=== PATIENT | female | born 1955 | race Caucasian/White ===

== ENCOUNTER 2020-12-21 15:15 | Emergency (ER) | payer OTHER ==
[~2020-12-21] VITALS: Ht 165.1 cm; Wt 81.7 kg
[2020-12-21 18:18] LABS: ABSOLUTE NEUTROPHILS 4.9 thou/uL (1.4-8.2); BASOPHILS 0.8 % (0.0-2.0); HEMATOCRIT 37.8 % (37.0-47.0); HEMOGLOBIN 12.9 gm/dL (12.0-15.0); LYMPHOCYTES 17.8 % (24.0-44.0); MCH 31.1 pg (26.0-34.0); MCV 91.3 fL (80.0-100.0); PLATELET COUNT 264 thou/uL (150-400); POLYS 68.4 % (36.0-66.0); RBC 4.13 mil/uL (4.20-5.00); RDW 13.2 % (10.5-14.5); URINE BILIRUBIN NEGATIVE (Negative); URINE BLOOD TRACE (Negative); URINE CLARITY SL CLOUDY; URINE COLOR YELLOW; URINE GLUCOSE-RANDOM* NEGATIVE (Negative); URINE KETONES NEGATIVE (Negative); URINE PROTEIN (DIPSTICK) NEGATIVE (Negative); URINE UROBILINOGEN 0.2 E.U./dl (0.2-1.0); WBC 7.1 thou/uL (4.0-11.0)
[2020-12-21 18:25] LABS: URINE LEUKOCYTES-REFLEX 3+ (Negative); URINE NITRITE-REFLEX POSITIVE (Negative)
[2020-12-21 18:39] LABS: CASTS None Seen /LPF (None Seen); SQUAMOUS 0-3 Few /LPF (0-3)
[2020-12-21 18:40] LABS: BACTERIA-REFLEX >30 Many /HPF (None Seen); CRYSTALS None Seen /LPF (None Seen); URINE RBC 1-2 Rare /HPF (NONE SEEN)
[2020-12-21 18:45] LABS: ALBUMIN 3.7 g/dL (3.4-5.0); CALCIUM 9.3 mg/dL (8.5-10.1); CREATININE 0.9 mg/dL (0.6-1.0); TOTAL BILIRUBIN 0.5 mg/dL (0.2-1.0)
[2020-12-21 19:03] LABS: POTASSIUM 2.9 mmol/L (3.5-5.1)
[2020-12-21] MEDS ORDERED: CEPHALEXIN500 MG PO (19:31)
[2020-12-21 19:57] VITALS: BP 129/62
--- NOTE | 2020-12-22 07:20 | EKG ---
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 : [id number] Requested By: Antonietta Quevedo Order Number: [id number] MD: Juan Salcedo Measurements Intervals [place] Rate: 69 P: 36 UT: 158 QRS: 13 QRSD: 101 T: 1 QT: 394 QTc: 422 Interpretive Statements Sinus rhythm Borderline T abnormalities, anterior leads Baseline wander in lead(s) II,III,aVF No previous ECG available for comparison Electronically Signed On 12-22-2020 7:20:18 CDT by Jaun Salcedo [email or web address] <ELECTRONICALLY SIGNED> By: Juan Salcedo MD, [facility] 12/22/20 0720 1743 42 Juan Salcedo MD, FACC /EPI
[2020-12-25] MEDS ORDERED: MACROBID 100 M100 M1 PO ×2 (14:37→14:45)
== END 2020-12-21 20:07 | disposition home or self-care (01) ==
LOC: ER 15:15
PROVIDERS: Physician Assistant
DX: R41.82 Altered mental status, unspecified (principal); E87.6 Hypokalemia; N39.0 Urinary tract infection, site not specified; Z20.822 Contact with and (suspected) exposure to COVID-19